=== PATIENT | male | born 1960 | race Caucasian/White ===

== ENCOUNTER 2017-02-21 12:36 | Inpatient (IN) ==
[2017-02-21] MEDS ORDERED: methylPREDNISolone 125 MG/2 ML VIAL IVP ONE (13:07)
[2017-02-21] MEDS ORDERED: Ipratropium/Albuterol Neb 3 ML IH ONE ×2 (13:07→14:18)
--- NOTE | 2017-02-21 13:10 | Emergency Department Note ---
Disposition Clinical Impression: Acute exacerbation of chronic obstructive airways disease, Shortness of breath Disposition: Admitted As Inpatient Condition: Good Referrals: Sean Christine MD [Primary Care Provider] - Forms: ED Satisfaction Letter Time of Disposition: 14:29 SOB HPI - General Chief Complaint: ED Shortness of Breath/Dyspnea Stated Complaint: SOB Time Seen by Provider: 02/21/17 12:42 Source: patient Limitations: no limitations Nursing Notes Reviewed: Yes Vital Signs Reviewed: Yes - History of Present Illness 56-year-old male presents to the emergency room for shortness of breath. Onset a few days ago with increased yellow sputum production. Subjective fevers. No chest pain. No lower leg pain or swelling. History of COPD. Patient has been using nebulizer at home with little relief. Patient still occasionally smokes. He does have home oxygen but does not have a prescription for it. He states his oxygen tank is run out. Pt Subjective Complaint: shortness of breath, cough Onset (ago): day(s) Severity: moderate Consistency/Duration: constant Improves with: nothing Worsens with: lying flat, exertion, movement, coughing Known history of: COPD Associated symptoms: Reports: cough. Denies: chest pain, pain with inspiration Treatment prior to arrival: bronchodilator Cough present: Yes Cough Description: Involuntary Cough Frequency: Intermittent Sputum production: Yes Sputum Amount: Small Sputum Color: Yellow - Related Data Previous Rx's Medication Instructions Recorded Albuterol Sulfate [Proair 2 puff IH Q4H PRN 30 Days 08/10/15 Respiclick] Budesonide/Formoterol 160/4.5 1 puff IH BIDR 30 Days 08/10/15 [Symbicort] Ipratropium/Albuterol Neb [Duoneb] 3 ml IH TID PRN #30 inhsol 08/10/15 Levofloxacin [Levaquin] 500 mg PO DAILY #5 tablet 08/10/15 predniSONE [PredniSONE] 20 mg PO DAILY #12 tablet 08/07/16 Allergies Allergy/AdvReac Type Severity Reaction Status Date / Time Sulfa (Sulfonamide Allergy See Verified 08/08/15 12:09 Antibiotics) Comments Constitutional: Reports: as per HPI Eyes: Reports: as per HPI Cardiovascular: Reports: as per HPI Respiratory: Reports: cough, wheezes Gastrointestinal: Reports: as per HPI Genitourinary: Reports: as per HPI Musculoskeletal: Reports: as per HPI Integumentary: Reports: as per HPI Neurological: Reports: as per HPI Psychiatric: Reports: as per HPI Endocrine: Reports: as per HPI Hematological/Lymphatic: Reports: as per HPI Allergic/Immunologic: Reports: as per HPI Past Medical History - Past Medical History Medical history: Reports: COPD, hypertension, other Surgical history: Reports: other Psychiatric history: Reports: no psych history - Social History Smoking Status: Current every day smoker Smokeless Tobacco Status: No Alcohol use: Reports: none Drug use: Reports: none Physical Exam - General Limitations: no limitations General appearance: alert - Head Head exam: atraumatic, normocephalic - Eye Eye exam: Present: normal appearance - Chest Chest inspection: Present: symmetric chest wall rise. Absent: tenderness - Respiratory Respiratory exam: Present: wheezes, other (Decreased breath sounds bilaterally.) - Cardiovascular Cardiovascular exam: Present: regular rate, normal rhythm, normal heart sounds - Abdominal Exam Abdominal exam: Present: soft, Non-Tender - Extremities Exam Extremities exam: Present: normal inspection, full ROM. Absent: tenderness, pedal edema - Back Exam Back exam: Present: normal inspection - Neurological Exam Neurological exam: Present: alert, oriented X3 - Psychiatric Psychiatric exam: Present: normal affect, normal mood - Skin Skin exam: Present: warm, dry, intact Course Vital Signs Temperature 99.9 F H 02/21/17 12:38 Pulse Rate 98 02/21/17 12:38 Respiratory Rate 22 02/21/17 12:38 Blood Pressure 166/72 02/21/17 12:38 O2 Sat by Pulse Oximetry 98 02/21/17 12:38 Temperature 99.9 F H 02/21/17 12:38 Pulse Rate 80 02/21/17 14:27 Respiratory Rate 22 02/21/17 14:27 Blood Pressure 128/71 02/21/17 14:27 O2 Sat by Pulse Oximetry 95 02/21/17 14:27 Oxygen Delivery Oxygen Delivery Nasal Cannula Shortness of Breath/Dyspnea - [facility] Narrative Medical decision making narrative: Patient's O2 saturations dropped to 86% while walking him around on room air in the ER. Patient does qualify for home oxygen at this time. He does not have any insurance at this point. We will admit the patient for pulmonary treatments as well as to help him get arranged for home oxygen. I have ordered IV Levaquin due to his elevated white count as well as this change and yellow sputum production and subjective fevers. He was also given Solu-Medrol and is pursued a few breathing treatments in the ER. - Differential Diagnosis Likely: acute exacerbation of chronic obstructive airways disease - Medical Records Medical records reviewed: Yes I reviewed the patient's medical records. - Lab Data Lab results reviewed: Yes I reviewed the patient's lab results. Result diagrams: 02/21/17 13:00 02/21/17 13:00 Lab Results 02/21/17 02/21/17 02/21/17 Range/Units 13:00 13:00 13:00 WBC 18.2 H (4.3-11.1) K/mcL RBC 4.34 (4.19-5.50) M/mcL Hgb 13.7 (12.9-16.9) g/dL Hct 40.6 (37.5-50.1) % MCV 93.5 (83.0-100.0) fL MCH 31.6 (28.0-33.3) pg MCHC 33.7 (31.6-35.5) g/dL RDW 12.7 (11.5-14.5) % Plt Count 220 (140-400) K/mcL MPV 8.9 L (9.4-12.4) fL Immature Gran % 0.5 (0-4) % Seg Neutrophils % 80.0 % Lymphocytes % 9.1 % Monocytes % 9.3 % Eosinophils % 0.8 % Basophils % 0.3 % Neutrophils # 14.5 H (1.6-8.9) K/mcL Lymphocytes # 1.7 (0.6-4.6) K/mcL Monocytes # 1.7 H (0.0-1.3) K/mcL Eosinophils # 0.2 (0.0-0.6) K/mcL Basophils # 0.1 (0.0-0.2) K/mcL Sodium 136 (136-145) mEq/L Potassium 4.2 (3.5-4.5) mEq/L Chloride 102 (98-109) mEq/L Carbon Dioxide 24 (19-29) mEq/L BUN 13 (8-26) mg/dL Creatinine 0.84 (0.72-1.25) mg/dL Est GFR ( Amer) > 60 (> 60) Est GFR (Non-Af Amer) > 60 (> 60) BUN/Creatinine Ratio 15 (6-26) Glucose 123 H (70-99) mg/dL Calculated Osmolality 283 (280-300) Calcium 8.8 (8.6-10.8) mg/dL Troponin I 0.01 (0-0.03) ng/mL B-Natriuretic Peptide (0-100) pg/mL 02/21/17 Range/Units 13:00 WBC (4.3-11.1) K/mcL RBC (4.19-5.50) M/mcL Hgb (12.9-16.9) g/dL Hct (37.5-50.1) % MCV (83.0-100.0) fL MCH (28.0-33.3) pg MCHC (31.6-35.5) g/dL RDW (11.5-14.5) % Plt Count (140-400) K/mcL MPV (9.4-12.4) fL Immature Gran % (0-4) % Seg Neutrophils % % Lymphocytes % % Monocytes % % Eosinophils % % Basophils % % Neutrophils # (1.6-8.9) K/mcL Lymphocytes # (0.6-4.6) K/mcL Monocytes # (0.0-1.3) K/mcL Eosinophils # (0.0-0.6) K/mcL Basophils # (0.0-0.2) K/mcL Sodium (136-145) mEq/L Potassium (3.5-4.5) mEq/L Chloride (98-109) mEq/L Carbon Dioxide (19-29) mEq/L BUN (8-26) mg/dL Creatinine (0.72-1.25) mg/dL Est GFR ( Amer) (> 60) Est GFR (Non-Af Amer) (> 60) BUN/Creatinine Ratio (6-26) Glucose (70-99) mg/dL Calculated Osmolality (280-300) Calcium (8.6-10.8) mg/dL Troponin I (0-0.03) ng/mL B-Natriuretic Peptide 44 (0-100) pg/mL - Radiology Data Radiology results reviewed: Yes I reviewed the patient's radiology results. - EKG Data EKG attestation: Yes I reviewed and interpreted this EKG. EKG results narrative: Rate of 85. Normal sinus rhythm. Normal axis. OK interval 129. QRS 94. QTC 400. No signs of acute ischemia.
[2017-02-21 13:15] LABS: Basophils # 0.1 K/mcL (0.0-0.2); Basophils % 0.3 %; Eosinophils # 0.2 K/mcL (0.0-0.6); Eosinophils % 0.8 %; Hematocrit 40.6 % (37.5-50.1); Hemoglobin 13.7 g/dL (12.9-16.9); Immature Granulocytes % 0.5 % (0-4); Lymphocytes # 1.7 K/mcL (0.6-4.6); Lymphocytes % 9.1 %; Mean Corpuscular HGB Conc 33.7 g/dL (31.6-35.5); Mean Corpuscular Hemoglobin 31.6 pg (28.0-33.3); Mean Corpuscular Volume 93.5 fL (83.0-100.0); Mean Platelet Volume 8.9 fL (9.4-12.4); Monocytes # 1.7 K/mcL (0.0-1.3); Monocytes % 9.3 %; Neutrophils # 14.5 K/mcL (1.6-8.9); Platelet Count 220 K/mcL (140-400); Red Blood Count 4.34 M/mcL (4.19-5.50); Red Cell Distribution Width 12.7 % (11.5-14.5)
[2017-02-21] MEDS ORDERED: Ibuprofen 800 MG TABLET PO ONE (13:17)
[2017-02-21 13:28] LABS: BUN/Creatinine Ratio 15 (6-26); Blood Urea Nitrogen 13 mg/dL (8-26); Calcium 8.8 mg/dL (8.6-10.8); Carbon Dioxide 24 mEq/L (19-29); Chloride 102 mEq/L (98-109); Glucose 123 mg/dL (70-99); Osmolality,Calculated 283 (280-300); Potassium 4.2 mEq/L (3.5-4.5); Sodium 136 mEq/L (136-145); eGFR For African Americans > 60 (> 60); eGFR For Non-African Americans > 60 (> 60)
[2017-02-21] MEDS ORDERED: Levofloxacin 750 MG/150 ML 750 MG/150 ML BAG IVPB ONE (14:19)
--- NOTE | 2017-02-21 17:02 | Internal Med History&Physical ---
<Jayson Juarez P - Last Filed: 02/21/17 17:04> Date of Encounter: 02/21/17 Internal Medicine - H&P: HPI History of present illness: Mr. Bui is a 56 year old male Internal Medicine - H&P: Meds Ibuprofen [Advil] 400 - 600 mg PO Q6H PRN 02/21/17 [History] Allergies Sulfa (Sulfonamide Antibiotics) Allergy (Verified 08/08/15 12:09) See Comments Patient unsure of reaction, states this is a childhood allergy. All Systems PM: A 10-system review of systems was performed and is negative for pertinent findings except as documented above in the HPI. - Constitutional Vitals: Temp Pulse Resp BP Pulse Ox 98.3 F 83 18 122/77 95 02/21/17 16:08 02/21/17 16:08 02/21/17 16:08 02/21/17 16:08 02/21/17 16:08 Internal Med - H&P Results - Labs CBC & Chem 7: 02/21/17 13:00 02/21/17 13:00 - Attending Attestation I examined this patient and my medical decision-making was reviewed with the WIRELESS ARCHITECT/PA/Advanced Practice Nurse/Resident Physician. I agree with the documented findings, disposition and treatment plan as described except to the extent set forth below. abx steroids BDAs close monitoring. <Pedro Pham - Last Filed: 02/21/17 17:53> Date of Encounter: 02/21/17 Time of Encounter: 17:00 Assessment and Plan (1) Acute exacerbation of chronic obstructive airways disease Current visit: Yes Status: Acute Patient has had multiple admissions in the past for acute exacerbation of COPD, patient is not home oxygen dependent, active smoker, likely secondary to bronchitis with productive sputum, chest x-ray showed no acute process, will start him on IV steroid, IV antibiotic, DuoNeb [id number], and oxygen support. We will test him for home oxygen 6 minutes walk before he gets discharged. (2) Acute bronchitis Current visit: Yes Status: Acute Will start him on Levaquin. Qualifiers: Qualified Code(s): J20.9 - Acute bronchitis, unspecified (3) Leukocytosis Current visit: Yes Status: Acute Likely related to underlying acute bronchitis, chest x-ray showed no acute process, looking back at his previous white count, it has been elevated since 2015, with his age, concern for CLL, will check peripheral blood smear. Qualifiers: Qualified Code(s): D72.829 - Elevated white blood cell count, unspecified (4) Tobacco abuse Current visit: Yes Status: Acute Smoking cessation education. (5) DVT prophylaxis Current visit: Yes Status: Acute Heparin subcutaneous twice a day. Internal Medicine - H&P: HPI Chief complaint: Worsening shortness of breath and productive cough. Admitted From: Emergency Dept Plans for Post Hospital Care: Home History of present illness: Mr. Bui is a 56 year old male with a history of COPD and tobacco abuse, who presented to the ER with chief complaint of worsening shortness of breath and productive cough, this started a few days ago, and got progressively worse therefore patient presented to the ER. Patient has several previous admission for COPD exacerbation in the past, patient denies recent sick contact, patient did not get a flu shot last year, patient states that he takes rescue inhaler multiple times per week, he does not see a gill tender or primary care physician for the last several years. Patient does not use home oxygen and he is active smoker, 1 pack per day for the last 20 years. Patient admits subjective fever/chills and productive cough with yellowish sputum. Past Med Surg Social Fam HX - Past Medical History Medical history: COPD, hypertension, other Psychiatric history: no psych history - Past Surgical History Surgical History: other - Social History Smoking Status: Light tobacco smoker Packs per day: 1 Smokeless Tobacco Status: No Alcohol use: none Drug use: none - Family History Mother Hx Family Cardiac Disorders: Yes ("heart problems') Father Family Member Ethnicity: Non- Living Status: Hx Family Cardiac Disorders: Yes Hx Family Respiratory Disorders: Yes ("lung problems") All Systems PM: A 10-system review of systems was performed and is negative for pertinent findings except as documented above in the HPI. Review of systems: Patient admits worsening shortness of breath, productive cough, subjective fevers/chills but denies headache, nausea/vomiting, chest pain, abdominal pain, diarrhea/constipation or dysuria. - Constitutional Vitals: Temp Pulse Resp BP Pulse Ox 98.3 F 83 18 122/77 95 02/21/17 16:08 02/21/17 16:08 02/21/17 16:08 02/21/17 16:08 02/21/17 16:08 General appearance: Present: cooperative, A&O X 3, pleasant, no acute distress, answers questions appropriately - Head Head exam: Present: atraumatic, normocephalic - Eye Eye exam: Present: PERRL, conjuntiva pink, sclera anicteric Pupils: Present: PERRL - Neck Neck exam general surgery: Present: supple, trachea midline. Absent: lymphadenopathy - Respiratory Respiratory exam: Present: decreased breath sounds (Diminished diffusedly bilateral), wheezes (Slightly at base bilateral). Absent: accessory muscle use , rales, rhonchi - Cardiovascular Cardiovascular exam: Present: RRR, +S1, +S2. Absent: diastolic murmur, gallop, rubs, systolic murmur - GI/Abdominal GI/Abdominal exam: Present: normal bowel sounds, soft, no peritoneal signs. Absent: distended, tenderness - Extremities Exam Extremities exam: Present: warm, radial pulses palpable and symetrical. Absent : calf tenderness, cyanotic, pedal edema - Neurological Exam Neurological exam: Present: CN II-XII intact, oriented X3, no focal deficits. Absent: pronater drift, facial droop, speech deficit - Skin Skin exam: Present: dry, intact Internal Med - H&P Results - Labs CBC & Chem 7: 02/21/17 13:00 02/21/17 13:00
[2017-02-21] MEDS ORDERED: Naloxone 0.4 MG/ML INJ IVP PRN (17:04)
[2017-02-21] MEDS: Ipratropium/Albuterol Neb 3 ML IH SCH ×2 (19:21→21:39)
[2017-02-21] MEDS: *HR* Heparin 5,000 UNIT/ML VIAL SQ SCH (19:25)
[2017-02-22] MEDS ORDERED: Acetaminophen 325 MG TABLET PO PRN (04:49)
[2017-02-22] MEDS: Ipratropium/Albuterol Neb 3 ML IH SCH ×3 (05:01→16:16)
[2017-02-22] MEDS: *HR* Heparin 5,000 UNIT/ML VIAL SQ SCH (05:10)
[2017-02-22 05:31] LABS: Basophils % 0.1 %; Hematocrit 40.7 % (37.5-50.1); Hemoglobin 13.8 g/dL (12.9-16.9); Immature Granulocytes % 0.9 % (0-4); Lymphocytes # 0.9 K/mcL (0.6-4.6); Lymphocytes % 5.7 %; Mean Corpuscular HGB Conc 33.9 g/dL (31.6-35.5); Mean Corpuscular Hemoglobin 31.9 pg (28.0-33.3); Monocytes % 6.1 %; Neutrophils # 14.3 K/mcL (1.6-8.9); Platelet Count 227 K/mcL (140-400); Red Blood Count 4.33 M/mcL (4.19-5.50); Red Cell Distribution Width 12.5 % (11.5-14.5); Segmented Neutrophils % 87.2 %
[2017-02-22] MEDS: MethylPREDNISolone 40 MG/ML VIAL IVP SCH ×2 (08:22→16:07)
--- NOTE | 2017-02-22 08:50 | Internal Med Progress Note ---
<Pedro Pham - Last Filed: 02/22/17 08:48> Date of Encounter: 02/22/17 Time of Encounter: 08:48 - Assessment and plan (2) Acute exacerbation of chronic obstructive airways disease Status: Acute Assessment and plan: Clinically patient's shortness of breath has improved compare to yesterday, however with slight hemoptysis that he started to cough up this morning, will order CT scan of the chest with contrast this morning. We will continue IV steroid, IV antibiotic, DuoNeb [id number], and oxygen support. We will test him for home oxygen 6 minutes walk before he gets discharged. (4) Leukocytosis Status: Acute Assessment and plan: White count has improved, we will continue IV antibiotic. Peripheral blood smear pending. Qualifiers: Qualified Code(s): D72.829 - Elevated white blood cell count, unspecified (5) Tobacco abuse Status: Acute Assessment and plan: Smoking cessation education. (6) DVT prophylaxis Status: Acute Assessment and plan: Heparin subcutaneous twice a day. (7) Acute bronchitis Status: Acute Assessment and plan: Continue IV Levaquin. Qualifiers: Qualified Code(s): J20.9 - Acute bronchitis, unspecified - Subjective Interval history: Patient seen and examined. Patient states that his shortness of breath has improved compare to yesterday however he started to cough up slight hemoptysis with yellowish sputum production, no active chest pain this morning. - Constitutional Vitals: Temp Pulse Resp BP Pulse Ox 97.6 F 77 16 134/87 96 02/22/17 06:51 02/22/17 06:51 02/22/17 06:51 02/22/17 06:51 02/22/17 06:51 General appearance: Present: cooperative, A&O X 3, pleasant, no acute distress, answers questions appropriately - Head Head exam: Present: atraumatic, normocephalic - Eye Eye exam: Present: PERRL, conjuntiva pink, sclera anicteric Pupils: Present: PERRL - Neck Neck exam general surgery: Present: supple, trachea midline. Absent: lymphadenopathy - Respiratory Respiratory exam: Present: decreased breath sounds (Diminished slightly diffusely bilateral), wheezes (Slightly at base bilateral). Absent: accessory muscle use, rales, rhonchi - Cardiovascular Cardiovascular exam: Present: RRR, +S1, +S2. Absent: diastolic murmur, gallop, rubs, systolic murmur - GI/Abdominal GI/Abdominal exam: Present: normal bowel sounds, soft, no peritoneal signs. Absent: distended, rebound, rigid, tenderness - Extremities Exam Extremities exam: Present: warm, radial pulses palpable and symetrical. Absent : calf tenderness, cyanotic, pedal edema - Neurological Exam Neurological exam: Present: CN II-XII intact, oriented X3, no focal deficits. Absent: pronater drift, facial droop, speech deficit - Skin Skin exam: Present: dry, intact Internal Medicine: Result - Labs CBC & Chem 7: 02/22/17 05:15 02/21/17 13:00 Labs: Short CBC 02/22/17 Range/Units 05:15 WBC 16.4 H (4.3-11.1) K/mcL Hgb 13.8 (12.9-16.9) g/dL Hct 40.7 (37.5-50.1) % Plt Count 227 (140-400) K/mcL Neutrophils # 14.3 H (1.6-8.9) K/mcL Consult Discharge Plan - Plan Referrals: Sean Christine MD [Primary Care Provider] - (Follow-up with patient's primary care physician in a few days for leaving hospital AGAINST MEDICAL ADVICE , if patient does not have PCP, please make an appointment with residency clinic.) Prescriptions: Albuterol Sulfate [Albuterol Inhaler] 2 puff IH Q2HR PRN #1 inhaler PRN Reason: Shortness Of Breath/Wheezing Budesonide/Formoterol 80/4.5 [Symbicort 80/4.5] 1 puff IH BID #1 puff Levofloxacin [Levaquin] 750 mg PO DAILY 7 Days predniSONE [PredniSONE] 10 mg PO DAILY #40 tablet <Jayson Juarez P - Last Filed: 02/22/17 18:49> Date of Encounter: 02/22/17 - Constitutional Vitals: Temp Pulse Resp BP Pulse Ox 98.4 F 86 18 146/78 96 02/22/17 15:21 02/22/17 15:21 02/22/17 15:21 02/22/17 15:21 02/22/17 15:21 Internal Medicine: Result - Labs CBC & Chem 7: 02/22/17 05:15 02/21/17 13:00 Labs: Short CBC 02/22/17 Range/Units 05:15 WBC 16.4 H (4.3-11.1) K/mcL Hgb 13.8 (12.9-16.9) g/dL Hct 40.7 (37.5-50.1) % Plt Count 227 (140-400) K/mcL Neutrophils # 14.3 H (1.6-8.9) K/mcL - Impressions Impressions Chest CT 02/22/17 09:00 IMPRESSION: Multifocal airspace disease, suspicious for pneumonia. There is underlying emphysema. D/ / Jesus Escalona MD / Jesus Escalona MD Interpreting Provider: Jesus Escalona MD - Attending Attestation I examined this patient and my medical decision-making was reviewed with the TRANSFERRER/PA/Advanced Practice Nurse/Resident Physician. I agree with the documented findings, disposition and treatment plan as described except to the extent set forth below.
[2017-02-22] MEDS ORDERED: Levofloxacin 750 MG/150 ML 750 MG/150 ML BAG IVPB SCH (14:00)
--- NOTE | 2017-02-22 14:22 | Discharge Summary ---
<Pedro Pham - Last Filed: 02/22/17 14:19> Date of Encounter: 02/22/17 Time of Encounter: 14:19 - Discharge Diagnosis (1) Left against medical advice Priority: Primary Status: Acute (2) Acute exacerbation of chronic obstructive airways disease Priority: Primary Status: Acute (3) Multifocal pneumonia Priority: Primary Status: Acute (4) Leukocytosis Priority: Primary Status: Acute Qualifiers: Qualified Code(s): D72.829 - Elevated white blood cell count, unspecified (5) Tobacco abuse Priority: Secondary Status: Acute (6) DVT prophylaxis Priority: Secondary Status: Acute - Discharge Medications Prescriptions: Albuterol Sulfate [Albuterol Inhaler] 2 puff IH Q2HR PRN #1 inhaler PRN Reason: Shortness Of Breath/Wheezing Budesonide/Formoterol 80/4.5 [Symbicort 80/4.5] 1 puff IH BID #1 puff Levofloxacin [Levaquin] 750 mg PO DAILY 7 Days predniSONE [PredniSONE] 10 mg PO DAILY #40 tablet Home Medications: Ibuprofen [Advil] 400 - 600 mg PO Q6H PRN 02/21/17 [History] Albuterol Sulfate [Albuterol Inhaler] 2 puff IH Q2HR PRN #1 inhaler 02/22/17 [Rx ] Budesonide/Formoterol 80/4.5 [Symbicort 80/4.5] 1 puff IH BID #1 puff 02/22/17 [Rx] Levofloxacin [Levaquin] 750 mg PO DAILY 7 Days 02/22/17 [Rx] predniSONE [PredniSONE] 10 mg PO DAILY #40 tablet 02/22/17 [Rx] Allergies/Adverse Reactions: Allergies Sulfa (Sulfonamide Antibiotics) Allergy (Verified 08/08/15 12:09) See Comments Patient unsure of reaction, states this is a childhood allergy. Procedures/tests Complete & Pending: Procedures Performed prior 72 hours Category Date Time Status CT chest with contrast [CT chest w con] [CT] Routine Cat Scan 02/22/17 09:00 Completed Date of admission: 02/21/17 16:26 Primary care physician: Yumiko Cardenas Consults: 02/22/17 10:25 Consult to Band Aid Machine Operator [CONS] Routine Reason for SW Consult: Possible need for home oxygen/inhalers Discharging clinician: Pedro Pham Anticipated date of discharge: 02/22/17 - Patient Status Disposition: Left Against Medical Advice Condition: Serious Functional capacity at discharge: independent ambulation Overall status at discharge: patient is not back to baseline - Discharge Instructions Follow Up With: Sean Christine MD [Primary Care Provider] - (Follow-up with patient's primary care physician in a few days for leaving hospital AGAINST MEDICAL ADVICE , if patient does not have PCP, please make an appointment with residency clinic.) - Diet and Activity Activity: resume usual activities as tolerated Diet: low fat, low cholesterol Hospital course: Mr. Bui is a 56 year old male male with a history of COPD and tobacco abuse who presented to ER with chief complaint of worsening shortness of breath and productive cough. Chest x-ray showed no acute process however patient presented with the elevated leukocytosis therefore patient was admitted to the hospital for acute exacerbation of COPD. For possible acute bronchitis patient was started on IV antibiotic of Levaquin, IV steroid, DuoNeb around the clock and oxygen support. CT scan of the chest with contrast showed possible underlying multifocal pneumonia. On the second day of admission, patient states that he needs to go home to take care of his dog, there is nobody to take care the dog today therefore he decided to sign the AGAINST MEDICAL ADVICE form and he was okay with leaving AMA, knowing risk of acute respiratory failure , septic shock/sepsis, cardiac arrest and even . Since patient has has no primary care physician to follow up with, will trying to make appointment with residency clinic and he will be given a prescription of steroid taper, by mouth Levaquin, and inhalers. - Time Spent with Patient Total time spent providing and/or coordinating discharge services: - Constitutional Vitals: Temp Pulse Resp BP Pulse Ox 98 F 81 16 129/84 94 02/22/17 10:11 02/22/17 10:11 02/22/17 11:54 02/22/17 10:11 02/22/17 11:54 General appearance: Present: cooperative, A&O X 3, pleasant, no acute distress, answers questions appropriately <Jayson Juarez P - Last Filed: 02/22/17 18:50> Date of Encounter: 02/22/17 Procedures/tests Complete & Pending: Procedures Performed prior 72 hours Category Date Time Status CT chest with contrast [CT chest w con] [CT] Routine Cat Scan 02/22/17 09:00 Completed Date of admission: 02/21/17 16:26 Primary care physician: Yumiko Cardenas Consults: 02/22/17 10:25 Consult to Band Aid Machine Operator [CONS] Routine Reason for SW Consult: Possible need for home oxygen/inhalers Hospital course: Mr. Bui is a 56 year old male - Time Spent with Patient Total time spent providing and/or coordinating discharge services: - Constitutional Vitals: Temp Pulse Resp BP Pulse Ox 98.4 F 86 18 146/78 96 02/22/17 15:21 02/22/17 15:21 02/22/17 15:21 02/22/17 15:21 02/22/17 15:21 - Attending Attestation I examined this patient and my medical decision-making was reviewed with the ADMINISTRATION VICE PRESIDENT/PA/Advanced Practice Nurse/Resident Physician. I agree with the documented findings, disposition and treatment plan as described except to the extent set forth below.
[2017-02-22 15:21] VITALS: BP 146/78
--- NOTE | 2017-02-24 16:45 | Electrocardiograph Report ---
[place] [address] Test Date: 2017-02-21 Pat Name: Nilesh Bui Department: 102 Room: [facility] Gender: M Tinsel Machine Operator: : 1960 Requested By: Nader Thomas Order Number: [id number] Reading MD: Sadi Benavidez MD Measurements Intervals [place] Rate: 85 P: 79 MS: 129 QRS: 21 QRSD: 94 T: 46 QT: 358 QTc: 400 Interpretive Statements SINUS RHYTHM MINIMAL VOLTAGE CRITERIA FOR LVH, CONSIDER NORMAL VARIANT Electronically Signed On 02-24-2017 16:43:51 EDT by Sadi Benavidez MD
--- NOTE | 2017-02-24 16:47 | Electrocardiograph Report ---
[address] [address] Test Date: 2017-02-21 Pat Name: Nilesh Bui Department: 102 Room: [facility] Gender: M Catcher Filter Tip: : 1960 Requested By: Nader Thomas Order Number: [id number] Reading MD: Sadi Benavidez MD Measurements Intervals [place] Rate: 80 P: 68 [place]: 139 QRS: 17 QRSD: 88 T: 52 QT: 366 QTc: 402 Interpretive Statements SINUS RHYTHM Electronically Signed On 02-24-2017 16:46:02 EDT by Sadi Benavidez MD
== END 2017-02-22 18:10 | disposition left against medical advice (07) | DRG 190 ==
LOC: EMEROO 12:36 → 3NENU 12:36
PROVIDERS: ADMIT Internal Medicine; ATTEND Internal Medicine

== ENCOUNTER 2020-10-28 20:35 | Observation (INO) ==
[2020-10-28] MEDS ORDERED: Aspirin 81 MG TAB.CHEW PO ONE (21:01)
[2020-10-28] MEDS ORDERED: *HR* FentaNYL (PF) 100 MCG/2 ML VIAL IVP ONE (21:03)
[2020-10-28 21:26] LABS: Basophils # 0.1 K/mcL (0.0-0.2); Basophils % 0.4 %; Eosinophils # 1.1 K/mcL (0.0-0.6); Eosinophils % 7.1 %; Hematocrit 44.8 % (37.5-50.1); Hemoglobin 14.7 g/dL (12.9-16.9); Immature Granulocytes % 0.7 % (0-4); Lymphocytes # 2.6 K/mcL (0.6-4.6); Lymphocytes % 16.3 %; Mean Corpuscular HGB Conc 32.8 g/dL (31.6-35.5); Mean Corpuscular Hemoglobin 31.7 pg (28.0-33.3); Mean Corpuscular Volume 96.6 fL (83.0-100.0); Monocytes # 1.5 K/mcL (0.0-1.3); Monocytes % 9.5 %; Neutrophils # 10.3 K/mcL (1.6-8.9); Platelet Count 243 K/mcL (140-400); Red Blood Count 4.64 M/mcL (4.19-5.50); Red Cell Distribution Width 12.2 % (11.5-14.5); White Blood Count 15.7 K/mcL (4.3-11.1)
[2020-10-28 21:54] LABS: Chloride 99 mEq/L (98-107); Potassium 4.1 mEq/L (3.5-5.1); Sodium 137 mEq/L (136-145); Troponin I 0.03 ng/mL (< 0.04)
[2020-10-28 22:19] LABS: BUN/Creatinine Ratio 16 (6-26); Blood Urea Nitrogen 14 mg/dL (8-23); Calcium 10.3 mg/dL (8.6-10.3); Carbon Dioxide 29 mEq/L (23-29); Glucose 111 mg/dL (70-105); Osmolality,Calculated 285 (280-300); eGFR For African Americans > 60 (> 60); eGFR For Non-African Americans > 60 (> 60)
[2020-10-28] MEDS ORDERED: Isovue-370 500 ML BOTTLE IVP ONE (22:46)
[2020-10-29] MEDS ORDERED: Ipratropium/Albuterol Neb 3 ML IH ONE (01:02)
[2020-10-29] MEDS ORDERED: Naloxone 0.4 MG/ML INJ IVP PRN (01:33)
[2020-10-29] MEDS ORDERED: Ipratropium 1 PUFF INHALER IH PRN (02:13)
[2020-10-29] MEDS ORDERED: Ipratropium/Albuterol Neb 3 ML IH PRN (02:14)
[2020-10-29 03:01] LABS: Basophils # 0.1 K/mcL (0.0-0.2); Basophils % 0.4 %; Eosinophils # 0.9 K/mcL (0.0-0.6); Eosinophils % 6.3 %; Hematocrit 44.4 % (37.5-50.1); Hemoglobin 14.9 g/dL (12.9-16.9); Immature Granulocytes % 0.7 % (0-4); Lymphocytes # 2.1 K/mcL (0.6-4.6); Lymphocytes % 15.5 %; Mean Corpuscular HGB Conc 33.6 g/dL (31.6-35.5); Mean Corpuscular Hemoglobin 32.8 pg (28.0-33.3); Mean Corpuscular Volume 97.8 fL (83.0-100.0); Monocytes # 1.3 K/mcL (0.0-1.3); Monocytes % 9.2 %; Neutrophils # 9.2 K/mcL (1.6-8.9); Platelet Count 235 K/mcL (140-400); Red Blood Count 4.54 M/mcL (4.19-5.50); Red Cell Distribution Width 12.1 % (11.5-14.5); Segmented Neutrophils % 67.9 %; White Blood Count 13.5 K/mcL (4.3-11.1)
[2020-10-29] MEDS: Azithromycin 500 MG in 0.9 % Sodium Chloride 250 ML IVPB SCH (03:04)
[2020-10-29] MEDS: cefTRIAXone 2,000 MG in Water for inj. (sterile) 20 ML IVP SCH (03:05)
[2020-10-29 03:18] LABS: BUN/Creatinine Ratio 16 (6-26); Blood Urea Nitrogen 14 mg/dL (8-23); Calcium 9.6 mg/dL (8.6-10.3); Carbon Dioxide 30 mEq/L (23-29); Chloride 98 mEq/L (98-107); Glucose 103 mg/dL (70-105); Osmolality,Calculated 283 (280-300); Potassium 4.1 mEq/L (3.5-5.1); Sodium 136 mEq/L (136-145); eGFR For African Americans > 60 (> 60); eGFR For Non-African Americans > 60 (> 60)
[2020-10-29 03:30] LABS: Adenovirus Not Detected (Not Detect); Bordetella Pertussis Not Detected (Not Detect); Chlamydophila pneumoniae Not Detected (Not Detect); Coronavirus 229E Not Detected (Not Detect); Coronavirus HKU1 Not Detected (Not Detect); Coronavirus NL63 Not Detected (Not Detect); Coronavirus OC43 Not Detected (Not Detect); Human Metapneumovirus Not Detected (Not Detect); Human Rhinovirus/Enterovirus Not Detected (Not Detect); Influenza A Subtype 2009 H1 Not Detected (Not Detect); Influenza B Not Detected (Not Detect); Mycoplasma pneumoniae Not Detected (Not Detect); Parainfluenza Virus 1 Not Detected (Not Detect); Parainfluenza Virus 2 Not Detected (Not Detect); Parainfluenza Virus 3 Not Detected (Not Detect); Parainfluenza Virus 4 Not Detected (Not Detect); Respiratory Syncytial Virus Not Detected (Not Detect); SARS-CoV-2 Not Detected (Not Detect)
[2020-10-29] MEDS: Sucralfate 1 GM TABLET PO SCH ×4 (04:32→20:14)
[2020-10-29] MEDS: Furosemide 20 MG TABLET PO SCH (07:54)
[2020-10-29] MEDS: Pantoprazole 40 MG VIAL IVP SCH (07:55)
[2020-10-29] MEDS: Ipratropium/Albuterol Neb 3 ML IH SCH ×3 (11:23→21:45)
[2020-10-29] MEDS: predniSONE 20 MG TABLET PO SCH (12:44)
[2020-10-29] MEDS ORDERED: Ondansetron 4 MG/2 ML VIAL IVP ONE (13:10)
[2020-10-29] MEDS ORDERED: *HR* Heparin 5,000 UNIT/ML VIAL SQ SCH (18:00)
[2020-10-30] MEDS: cefTRIAXone 2,000 MG in Water for inj. (sterile) 20 ML IVP SCH (03:37)
[2020-10-30] MEDS: Azithromycin 500 MG in 0.9 % Sodium Chloride 250 ML IVPB SCH (03:37)
[2020-10-30] MEDS: Ipratropium/Albuterol Neb 3 ML IH SCH ×4 (03:42→21:52)
[2020-10-30 05:45] LABS: Basophils # 0.1 K/mcL (0.0-0.2); Basophils % 0.4 %; Eosinophils # 0.2 K/mcL (0.0-0.6); Eosinophils % 1.3 %; Hematocrit 41.4 % (37.5-50.1); Hemoglobin 13.9 g/dL (12.9-16.9); Immature Granulocytes % 0.7 % (0-4); Lymphocytes # 2.2 K/mcL (0.6-4.6); Lymphocytes % 16.4 %; Mean Corpuscular HGB Conc 33.6 g/dL (31.6-35.5); Mean Corpuscular Hemoglobin 32.3 pg (28.0-33.3); Mean Corpuscular Volume 96.3 fL (83.0-100.0); Monocytes # 1.3 K/mcL (0.0-1.3); Monocytes % 9.9 %; Neutrophils # 9.6 K/mcL (1.6-8.9); Platelet Count 228 K/mcL (140-400); Segmented Neutrophils % 71.3 %; White Blood Count 13.5 K/mcL (4.3-11.1)
[2020-10-30 06:04] LABS: BUN/Creatinine Ratio 24 (6-26); Blood Urea Nitrogen 18 mg/dL (8-23); Calcium 8.8 mg/dL (8.6-10.3); Carbon Dioxide 31 mEq/L (23-29); Chloride 100 mEq/L (98-107); Glucose 114 mg/dL (70-105); Osmolality,Calculated 285 (280-300); Potassium 4.3 mEq/L (3.5-5.1); Sodium 136 mEq/L (136-145); eGFR For African Americans > 60 (> 60); eGFR For Non-African Americans > 60 (> 60)
[2020-10-30] MEDS: Pantoprazole 40 MG VIAL IVP SCH (07:52)
[2020-10-30] MEDS: lisinopriL 20 MG TABLET PO SCH (07:52)
[2020-10-30] MEDS: Sucralfate 1 GM TABLET PO SCH ×4 (07:52→20:15)
[2020-10-30] MEDS: predniSONE 20 MG TABLET PO SCH (07:52)
[2020-10-30] MEDS: Furosemide 20 MG TABLET PO SCH (07:52)
[2020-10-31] MEDS: cefTRIAXone 2,000 MG in Water for inj. (sterile) 20 ML IVP SCH (02:15)
[2020-10-31] MEDS: Azithromycin 500 MG in 0.9 % Sodium Chloride 250 ML IVPB SCH (02:15)
[2020-10-31] MEDS: Ipratropium/Albuterol Neb 3 ML IH SCH ×2 (04:06→09:39)
[2020-10-31 06:29] LABS: Basophils # 0.1 K/mcL (0.0-0.2); Basophils % 0.6 %; Eosinophils # 0.4 K/mcL (0.0-0.6); Eosinophils % 2.4 %; Hematocrit 39.9 % (37.5-50.1); Hemoglobin 13.4 g/dL (12.9-16.9); Immature Granulocytes % 0.8 % (0-4); Lymphocytes # 3.2 K/mcL (0.6-4.6); Lymphocytes % 22.3 %; Mean Corpuscular HGB Conc 33.6 g/dL (31.6-35.5); Mean Corpuscular Hemoglobin 31.6 pg (28.0-33.3); Mean Corpuscular Volume 94.1 fL (83.0-100.0); Monocytes # 1.2 K/mcL (0.0-1.3); Monocytes % 8.3 %; Neutrophils # 9.4 K/mcL (1.6-8.9); Platelet Count 236 K/mcL (140-400); Red Blood Count 4.24 M/mcL (4.19-5.50); Red Cell Distribution Width 12.2 % (11.5-14.5); Segmented Neutrophils % 65.6 %; White Blood Count 14.4 K/mcL (4.3-11.1)
[2020-10-31 06:37] VITALS: BP 133/80
[2020-10-31 06:50] LABS: BUN/Creatinine Ratio 26 (6-26); Blood Urea Nitrogen 20 mg/dL (8-23); Calcium 8.6 mg/dL (8.6-10.3); Carbon Dioxide 28 mEq/L (23-29); Chloride 102 mEq/L (98-107); Glucose 105 mg/dL (70-105); Osmolality,Calculated 287 (280-300); Potassium 3.8 mEq/L (3.5-5.1); Sodium 137 mEq/L (136-145); eGFR For African Americans > 60 (> 60); eGFR For Non-African Americans > 60 (> 60)
[2020-10-31] MEDS: predniSONE 20 MG TABLET PO SCH (07:42)
[2020-10-31] MEDS: Pantoprazole 40 MG VIAL IVP SCH (07:42)
[2020-10-31] MEDS: Furosemide 20 MG TABLET PO SCH (07:42)
[2020-10-31] MEDS: lisinopriL 20 MG TABLET PO SCH (07:42)
[2020-10-31] MEDS: Sucralfate 1 GM TABLET PO SCH (07:42)
== END 2020-10-31 11:46 | disposition home or self-care (01) ==
LOC: 3BNU 20:35 → EMEROOARM 20:35 → 3BNU 10-29 02:16
PROVIDERS: ADMIT Internal Medicine; ATTEND Internal Medicine

== ENCOUNTER 2022-02-06 02:26 | Inpatient (IN) ==
[2022-02-06] MEDS: Ipratropium/Albuterol Neb 3 ML IH ONE ×2 (02:30→03:00)
[2022-02-06] MEDS ORDERED: Ipratropium/Albuterol Neb 3 ML ONE (02:33)
[2022-02-06 02:46] LABS: Basophils # 0.2 K/mcL (0.0-0.2); Basophils % 0.7 %; Eosinophils # 0.9 K/mcL (0.0-0.6); Eosinophils % 4.3 %; Hematocrit 49.1 % (37.5-50.1); Hemoglobin 15.6 g/dL (12.9-16.9); Immature Granulocytes % 1.2 % (0-4); Lymphocytes # 7.4 K/mcL (0.6-4.6); Lymphocytes % 36.3 %; Mean Corpuscular HGB Conc 31.8 g/dL (31.6-35.5); Mean Corpuscular Hemoglobin 32.8 pg (28.0-33.3); Mean Corpuscular Volume 103.4 fL (83.0-100.0); Mean Platelet Volume 9.5 fL (9.4-12.4); Monocytes # 2.1 K/mcL (0.0-1.3); Monocytes % 10.2 %; Neutrophils # 9.7 K/mcL (1.6-8.9); Platelet Count 280 K/mcL (140-400); Red Blood Count 4.75 M/mcL (4.19-5.50); Red Cell Distribution Width 12.3 % (11.5-14.5); Segmented Neutrophils % 47.3 %; White Blood Count 20.5 K/mcL (4.3-11.1)
[2022-02-06 02:48] LABS: VBG HCO3 24 mEq/L (21-27); VBG PCO2 113 mmHg (41-51); VBG PH 6.94 pH Units (7.32-7.42); VBG PO2 80 mmHg (25-50)
[2022-02-06 02:53] LABS: INR 1.1; Prothrombin Time 12.8 Seconds (9.4-12.1)
[2022-02-06 02:56] LABS: Activated Partial Thrombo Time 30.7 Seconds (26.0-36.0)
[2022-02-06 03:05] LABS: Albumin 4.2 g/dL (3.5-5.7); Albumin/Globulin Ratio 1.8 (1.1-2.2); Bilirubin,Direct 0.2 mg/dL (0.0-0.2); Bilirubin,Indirect 0.5 mg/dL (0.0-1.0); Bilirubin,Total 0.7 mg/dL (0.3-1.0); Calcium 9.2 mg/dL (8.6-10.3); Globulin 2.3 g/dL (2.4-3.5); Potassium 4.2 mEq/L (3.5-5.1); Total Protein 6.5 g/dL (6.4-8.9); Troponin I 0.03 ng/mL (< 0.04)
[2022-02-06] MEDS ORDERED: Albuterol 2.5 MG/3 ML NEBULIZER IH ONE (03:31)
[2022-02-06 04:00] LABS: VBG HCO3 31 mEq/L (21-27); VBG PCO2 83 mmHg (41-51); VBG PH 7.18 pH Units (7.32-7.42); VBG PO2 34 mmHg (25-50)
[2022-02-06] MEDS ORDERED: Azithromycin 500 MG in 0.9 % Sodium Chloride 250 ML IVPB ONE (04:15)
[2022-02-06] MEDS ORDERED: D5% in Water 1,000 ML IVC PRN (04:30)
[2022-02-06] MEDS ORDERED: Dextrose Gel 15 GM/37.5 ML TUBE PO PRN ×2 (04:30)
[2022-02-06] MEDS ORDERED: *HR* Dextrose 50 % in Water (Syg) 50 ML SYRINGE IVP PRN (04:30)
[2022-02-06] MEDS ORDERED: Ondansetron 4 MG/2 ML VIAL IVP PRN (04:31)
[2022-02-06] MEDS ORDERED: methylPREDNISolone 125 MG/2 ML VIAL IVP ONE (04:31)
[2022-02-06] MEDS ORDERED: Naloxone 0.4 MG/ML INJ IVP PRN (04:31)
[2022-02-06] MEDS ORDERED: 0.9 % Sodium Chloride 500 ML IVC PRN (04:37)
[2022-02-06] MEDS: Insulin LISPRO 300 UNITS/3 ML VIAL SUBQ SCH ×5 (06:35→17:30)
[2022-02-06 06:36] LABS: Adenovirus Not Detected (Not Detect); Bordetella Pertussis Not Detected (Not Detect); Chlamydophila pneumoniae Not Detected (Not Detect); Coronavirus 229E Not Detected (Not Detect); Coronavirus HKU1 Not Detected (Not Detect); Coronavirus NL63 Not Detected (Not Detect); Coronavirus OC43 Not Detected (Not Detect); Human Metapneumovirus Not Detected (Not Detect); Human Rhinovirus/Enterovirus Not Detected (Not Detect); Influenza A Subtype 2009 H1 Not Detected (Not Detect); Influenza B Not Detected (Not Detect); Mycoplasma pneumoniae Not Detected (Not Detect); Parainfluenza Virus 1 Not Detected (Not Detect); Parainfluenza Virus 2 Not Detected (Not Detect); Parainfluenza Virus 3 Not Detected (Not Detect); Parainfluenza Virus 4 Not Detected (Not Detect); Respiratory Syncytial Virus Not Detected (Not Detect); SARS-CoV-2 Not Detected (Not Detect)
[2022-02-06] MEDS: cefTRIAXone 1,000 MG in 0.9 % Sodium Chloride 10 ML IVP SCH (08:15)
[2022-02-06] MEDS: Pantoprazole 40 MG VIAL IVP SCH (08:15)
[2022-02-06 10:02] LABS: ABG Base Excess 0 mEq/L (-2 to 3); ABG HCO3 26 mEq/L (21-27); ABG Oxygen Saturation 94 % (95-98); ABG PCO2 44 mmHg (35-45); ABG PH 7.38 pH Units (7.32-7.45); ABG PO2 71 mmHg (85-104); ABG TCO2 27 mEq/L (20-26)
[2022-02-06] MEDS: methylPREDNISolone 125 MG/2 ML VIAL IVP SCH ×3 (11:19→23:20)
[2022-02-06] MEDS: Ipratropium/Albuterol Neb 3 ML IH PRN ×2 (15:50→20:24)
[2022-02-06] MEDS: Acetaminophen 325 MG TABLET PO PRN (15:50)
[2022-02-06] MEDS ORDERED: *HR* Heparin 5,000 UNIT/ML VIAL IVP ONE (18:24)
[2022-02-06] MEDS ORDERED: *HR* Heparin 5,000 UNIT/ML VIAL IVP PRN ×2 (18:24)
[2022-02-06] MEDS: Heparin 25,000UNIT/250ML 1/2NS 25,000 UNIT/250 ML IV.SOLN IVC SCH (19:49)
[2022-02-07] MEDS: Ipratropium/Albuterol Neb 3 ML IH SCH ×7 (00:07→23:02)
[2022-02-07] MEDS: methylPREDNISolone 125 MG/2 ML VIAL IVP SCH (04:03)
[2022-02-07 04:12] LABS: BUN/Creatinine Ratio 25 (6-26); Blood Urea Nitrogen 20 mg/dL (8-23); Carbon Dioxide 26 mEq/L (23-29); Chloride 105 mEq/L (98-107); Glucose 144 mg/dL (70-105); Osmolality,Calculated 287 (280-300); Potassium 4.3 mEq/L (3.5-5.1); Sodium 136 mEq/L (136-145); eGFR For African Americans > 60 (> 60); eGFR For Non-African Americans > 60 (> 60)
[2022-02-07 04:20] LABS: Heparin anti-factor XA UFH 0.21 IU/mL (0.30-0.70); INR 1.1; Prothrombin Time 12.3 Seconds (9.4-12.1)
[2022-02-07] MEDS ORDERED: Saline Nasal Spray 44 ML BOTTLE NS PRN (04:32)
[2022-02-07] MEDS: Azithromycin 500 MG in 0.9 % Sodium Chloride 250 ML IVPB SCH (05:12)
[2022-02-07] MEDS ORDERED: methylPREDNISolone 125 MG/2 ML VIAL IVP SCH (06:00)
[2022-02-07 06:41] LABS: Basophils % 0.1 %; Hematocrit 44.1 % (37.5-50.1); Hemoglobin 14.7 g/dL (12.9-16.9); Immature Granulocytes % 0.5 % (0-4); Lymphocytes # 0.8 K/mcL (0.6-4.6); Lymphocytes % 5.2 %; Mean Corpuscular HGB Conc 33.3 g/dL (31.6-35.5); Mean Corpuscular Hemoglobin 32.2 pg (28.0-33.3); Mean Corpuscular Volume 96.5 fL (83.0-100.0); Mean Platelet Volume 9.5 fL (9.4-12.4); Monocytes # 0.7 K/mcL (0.0-1.3); Monocytes % 4.2 %; Neutrophils # 14.4 K/mcL (1.6-8.9); Platelet Count 221 K/mcL (140-400); Red Blood Count 4.57 M/mcL (4.19-5.50); Red Cell Distribution Width 12.2 % (11.5-14.5)
[2022-02-07] MEDS: cefTRIAXone 1,000 MG in 0.9 % Sodium Chloride 10 ML IVP SCH (07:51)
[2022-02-07] MEDS: Pantoprazole 40 MG VIAL IVP SCH (07:52)
[2022-02-07] MEDS: Insulin LISPRO 300 UNITS/3 ML VIAL SUBQ SCH ×3 (08:05→17:00)
[2022-02-07] MEDS ORDERED: Perflutren Lipid Microsphere 1.3 ML in 0.9 % Sodium Chloride 8.7 ML IVP PRN (08:30)
[2022-02-07] MEDS: Acetaminophen 325 MG TABLET PO PRN ×2 (09:51→20:21)
[2022-02-07] MEDS: MethylPREDNISolone 40 MG/ML VIAL IVP SCH ×2 (17:02→23:43)
[2022-02-07] MEDS: Heparin 25,000UNIT/250ML 1/2NS 25,000 UNIT/250 ML IV.SOLN IVC SCH (19:30)
[2022-02-07] MEDS ORDERED: Nicotine 21 MG PATCH.TD24 TD SCH (20:30)
[2022-02-07] MEDS: *HR* Metoprolol 5 MG/5 ML VIAL IVP PRN (20:32)
[2022-02-08] MEDS: Ipratropium/Albuterol Neb 3 ML IH SCH ×6 (03:42→23:23)
[2022-02-08 05:49] LABS: Basophils % 0.1 %; Hematocrit 43.2 % (37.5-50.1); Hemoglobin 14.5 g/dL (12.9-16.9); Immature Granulocytes % 0.7 % (0-4); Lymphocytes # 0.8 K/mcL (0.6-4.6); Mean Corpuscular HGB Conc 33.6 g/dL (31.6-35.5); Mean Corpuscular Hemoglobin 32.2 pg (28.0-33.3); Mean Corpuscular Volume 95.8 fL (83.0-100.0); Mean Platelet Volume 9.5 fL (9.4-12.4); Monocytes # 0.9 K/mcL (0.0-1.3); Monocytes % 4.5 %; Neutrophils # 17.7 K/mcL (1.6-8.9); Platelet Count 237 K/mcL (140-400); Red Blood Count 4.51 M/mcL (4.19-5.50); Red Cell Distribution Width 12.3 % (11.5-14.5); Segmented Neutrophils % 90.7 %; White Blood Count 19.5 K/mcL (4.3-11.1)
[2022-02-08 06:05] LABS: Chol/HDL Ratio 3.7 (0-4.9); Phosphorous 3.1 mg/dL (2.7-4.5)
[2022-02-08] MEDS: Azithromycin 500 MG in 0.9 % Sodium Chloride 250 ML IVPB SCH (06:28)
[2022-02-08] MEDS: Insulin LISPRO 300 UNITS/3 ML VIAL SUBQ SCH ×3 (07:41→17:43)
[2022-02-08] MEDS: Pantoprazole 40 MG VIAL IVP SCH (07:49)
[2022-02-08] MEDS: cefTRIAXone 1,000 MG in 0.9 % Sodium Chloride 10 ML IVP SCH (07:51)
[2022-02-08] MEDS: MethylPREDNISolone 40 MG/ML VIAL IVP SCH ×2 (07:51→15:03)
[2022-02-08] MEDS: *HR* Metoprolol 5 MG/5 ML VIAL IVP PRN (11:13)
[2022-02-08] MEDS ORDERED: GuaiFENesin/Dextromethorphan TABLET PO PRN (14:50)
[2022-02-08] MEDS: amLODIPine 5 MG TABLET PO SCH (15:03)
[2022-02-08 17:17] LABS: Estimated Average Glucose 120 mg/dl; Hemoglobin A1C 5.8 %
[2022-02-08] MEDS ORDERED: Nicotine 21 MG PATCH.TD24 TD SCH (21:00)
[2022-02-09] MEDS: MethylPREDNISolone 40 MG/ML VIAL IVP SCH ×2 (01:13→08:49)
[2022-02-09 03:25] LABS: Basophils % 0.1 %; Hematocrit 43.2 % (37.5-50.1); Hemoglobin 14.5 g/dL (12.9-16.9); Lymphocytes # 1.2 K/mcL (0.6-4.6); Lymphocytes % 6.4 %; Mean Corpuscular HGB Conc 33.6 g/dL (31.6-35.5); Mean Corpuscular Hemoglobin 32.4 pg (28.0-33.3); Mean Corpuscular Volume 96.4 fL (83.0-100.0); Mean Platelet Volume 9.5 fL (9.4-12.4); Monocytes # 1.1 K/mcL (0.0-1.3); Monocytes % 6.2 %; Neutrophils # 15.7 K/mcL (1.6-8.9); Platelet Count 217 K/mcL (140-400); Red Blood Count 4.48 M/mcL (4.19-5.50); Red Cell Distribution Width 12.2 % (11.5-14.5); Segmented Neutrophils % 86.3 %; White Blood Count 18.2 K/mcL (4.3-11.1)
[2022-02-09 03:31] VITALS: BP 159/88
[2022-02-09 03:56] LABS: BUN/Creatinine Ratio 27 (6-26); Blood Urea Nitrogen 20 mg/dL (8-23); Calcium 8.8 mg/dL (8.6-10.3); Carbon Dioxide 26 mEq/L (23-29); Chloride 102 mEq/L (98-107); Glucose 124 mg/dL (70-105); Magnesium 2.1 mg/dL (1.6-2.6); Osmolality,Calculated 284 (280-300); Potassium 4.2 mEq/L (3.5-5.1); Sodium 135 mEq/L (136-145); eGFR For African Americans > 60 (> 60); eGFR For Non-African Americans > 60 (> 60)
[2022-02-09] MEDS: Ipratropium/Albuterol Neb 3 ML IH SCH ×3 (04:10→11:27)
[2022-02-09] MEDS: Azithromycin 500 MG in 0.9 % Sodium Chloride 250 ML IVPB SCH (06:06)
[2022-02-09 06:41] VITALS: TEMP 98
[2022-02-09] MEDS: Insulin LISPRO 300 UNITS/3 ML VIAL SUBQ SCH (07:59)
[2022-02-09] MEDS: Pantoprazole 40 MG VIAL IVP SCH (08:49)
[2022-02-09] MEDS: cefTRIAXone 1,000 MG in 0.9 % Sodium Chloride 10 ML IVP SCH (08:49)
[2022-02-09] MEDS: amLODIPine 5 MG TABLET PO SCH (08:50)
[2022-02-09 12:06] VITALS: PULSE 97; O2SAT 96
== END 2022-02-09 15:11 | disposition home or self-care (01) | DRG 871 ==
LOC: EMEROOARM 02:26 → ICNU 02:26 → SUATTDRO 04:41 → ICNU 05:31 → 2NENU 02-07 22:34
PROVIDERS: ADMIT Internal Medicine; ATTEND Family Medicine

== ENCOUNTER 2022-03-07 20:12 | Inpatient (IN) ==
[2022-03-07] MEDS ORDERED: 0.9 % Sodium Chloride 1,000 ML IVC ONE (20:25)
[2022-03-07 20:32] LABS: ABG Base Excess -8 mEq/L (-2 to 3); ABG HCO3 23 mEq/L (21-27); ABG Oxygen Saturation 96 % (95-98); ABG PCO2 80 mmHg (35-45); ABG PH 7.07 pH Units (7.32-7.45); ABG PO2 115 mmHg (85-104); ABG TCO2 26 mEq/L (20-26)
[2022-03-07 20:53] LABS: INR 1.1; Prothrombin Time 11.9 Seconds (9.4-12.1)
[2022-03-07 21:06] LABS: Alanine Aminotransferase 74 Units/L (7-52); Albumin 3.6 g/dL (3.5-5.7); Albumin/Globulin Ratio 1.7 (1.1-2.2); Alkaline Phosphatase 65 Units/L (34-104); Aspartate Amino Transferase 60 Units/L (13-39); BUN/Creatinine Ratio 18 (6-26); Bilirubin,Total 0.4 mg/dL (0.3-1.0); Blood Urea Nitrogen 21 mg/dL (8-23); Calcium 8.6 mg/dL (8.6-10.3); Carbon Dioxide 24 mEq/L (23-29); Chloride 101 mEq/L (98-107); Creatine Kinase 117 Units/L (30-223); Globulin 2.1 g/dL (2.4-3.5); Glucose 183 mg/dL (70-105); Magnesium 2.1 mg/dL (1.6-2.6); Osmolality,Calculated 300 (280-300); Potassium 4.6 mEq/L (3.5-5.1); Sodium 141 mEq/L (136-145); Total Protein 5.7 g/dL (6.4-8.9); Troponin I 0.03 ng/mL (< 0.04); eGFR For African Americans > 60 (> 60); eGFR For Non-African Americans > 60 (> 60)
[2022-03-07 21:20] LABS: Hematocrit 40.7 % (37.5-50.1); Hemoglobin 13.6 g/dL (12.9-16.9); Mean Corpuscular HGB Conc 33.4 g/dL (31.6-35.5); Mean Corpuscular Hemoglobin 33.1 pg (28.0-33.3); Mean Platelet Volume 8.9 fL (9.4-12.4); Platelet Count 330 K/mcL (140-400); Red Blood Count 4.11 M/mcL (4.19-5.50); Red Cell Distribution Width 12.8 % (11.5-14.5)
[2022-03-07] MEDS ORDERED: *HR* EPINEPHrine 1 MG/10 ML SYRINGE IVP ONE (21:30)
[2022-03-07 21:32] LABS: Amphetamine Screen,Urine Negative ng/mL (Cutoff=1000); Barbiturate Screen,Urine Negative ng/mL (Cutoff=200); Benzodiazepines Screen,Urine Negative ng/mL (Cutoff=200); Cannabinoid Screen,Urine Positive ng/mL (Cutoff = 50); Cocaine Screen,Urine Negative ng/mL (Cutoff= 300); Opiate Screen,Urine Negative ng/mL (Cutoff=300); Phencyclidine Screen,Urine Negative ng/mL (Cutoff=25)
[2022-03-07 21:36] LABS: Lymphocytes # 3.4 K/mcL (0.6-4.6); Monocytes # 1.1 K/mcL (0.0-1.3); Neutrophils # 14.4 K/mcL (1.6-8.9)
[2022-03-07 21:49] LABS: Bacteria,Urine Few per hpf (None-Few); Bilirubin,Urine Negative (Negative); Blood,Urine Large (Negative); Clarity,Urine Turbid (Clear); Color,Urine Yellow (Yellow); Glucose,Urine (UA) 150 mg/dL (Normal); Hyaline Casts,Urine Few per lpf (None Seen); Ketones,Urine Negative (Negative); Leukocyte Esterase,Urine Negative (Negative); Mucus,Urine Few per lpf (None-Few); Nitrite,Urine Negative (Negative); PH,Urine 6.5 pH Units (5.0-8.0); Protein,Urine >=300 mg/dL (Neg-Trace); RBC,Urine TNTC per hpf (0-3); Specific Gravity,Urine 1.024 (1.010-1.025); Sperm,Urine Present per hpf (None Seen); Squamous Epithelial Cell,Urine Few per hpf (None-Few); Urobilinogen,Urine Normal (Normal); WBC,Urine 15-30 per hpf (0-3)
[2022-03-07] MEDS ORDERED: Ondansetron 4 MG/2 ML VIAL IVP PRN (22:00)
[2022-03-07] MEDS ORDERED: Naloxone 0.4 MG/ML INJ IVP PRN ×3 (22:00→22:46)
[2022-03-07] MEDS ORDERED: Artificial Tears SOLN 15 ML BOTTLE BOTH EYES PRN (22:50)
[2022-03-07] MEDS ORDERED: Ipratropium/Albuterol Neb 3 ML ONE (23:05)
[2022-03-07] MEDS ORDERED: *HR* Heparin 5,000 UNIT/ML VIAL SQ SCH (23:15)
[2022-03-07] MEDS ORDERED: Azithromycin 500 MG in 0.9 % Sodium Chloride 250 ML IVPB SCH (23:45)
[2022-03-07] MEDS: Artificial Tears SOLN 15 ML BOTTLE BOTH EYES SCH (23:48)
[2022-03-07] MEDS: Pantoprazole 40 MG VIAL IVP SCH (23:49)
[2022-03-08] MEDS: Midazolam HCl 50 MG/50 ML IV.SOLN IVC SCH ×2 (00:10→11:10)
[2022-03-08 00:30] LABS: ABG Base Excess 1 mEq/L (-2 to 3); ABG HCO3 27 mEq/L (21-27); ABG Oxygen Saturation 99 % (95-98); ABG PCO2 46 mmHg (35-45); ABG PH 7.37 pH Units (7.32-7.45); ABG PO2 157 mmHg (85-104); ABG TCO2 28 mEq/L (20-26); Blood Gas Modality ASSIST CONTROL; Blood Gas VT 500 cc
[2022-03-08 02:54] LABS: Basophils % 0.1 %; Hematocrit 38.8 % (37.5-50.1); Immature Granulocytes % 1.1 % (0-4); Lymphocytes # 1.3 K/mcL (0.6-4.6); Lymphocytes % 5.8 %; Mean Corpuscular HGB Conc 33.5 g/dL (31.6-35.5); Mean Corpuscular Hemoglobin 32.7 pg (28.0-33.3); Mean Corpuscular Volume 97.5 fL (83.0-100.0); Monocytes # 2.7 K/mcL (0.0-1.3); Monocytes % 12.7 %; Neutrophils # 17.3 K/mcL (1.6-8.9); Platelet Count 251 K/mcL (140-400); Red Blood Count 3.98 M/mcL (4.19-5.50); Red Cell Distribution Width 12.9 % (11.5-14.5); Segmented Neutrophils % 80.3 %; White Blood Count 21.6 K/mcL (4.3-11.1)
[2022-03-08 03:04] LABS: INR 1.2; Prothrombin Time 13.1 Seconds (9.4-12.1)
[2022-03-08 03:25] LABS: BUN/Creatinine Ratio 27 (6-26); Blood Urea Nitrogen 28 mg/dL (8-23); Calcium 8.1 mg/dL (8.6-10.3); Carbon Dioxide 25 mEq/L (23-29); Chloride 108 mEq/L (98-107); Chol/HDL Ratio 3.8 (0-4.9); Cholesterol 145 mg/dL (< 200); Glucose 182 mg/dL (70-105); HDL Cholesterol 38 mg/dL (40-59); LDL Cholesterol,Calculated 87 mg/dL (< 100); Magnesium 1.8 mg/dL (1.6-2.6); Osmolality,Calculated 302 (280-300); Phosphorous 1.6 mg/dL (2.7-4.5); Potassium 3.4 mEq/L (3.5-5.1); Sodium 141 mEq/L (136-145); Thyroid Stimulating Hormone 0.437 mcIU/mL (0.340-5.600); Triglycerides 98 mg/dL (< 150); eGFR For African Americans > 60 (> 60); eGFR For Non-African Americans > 60 (> 60)
[2022-03-08] MEDS ORDERED: Potassium Phosphate 44 MEQ in 0.9 % Sodium Chloride 250 ML IVPB ONE (04:25)
[2022-03-08] MEDS ORDERED: *HR* Heparin 5,000 UNIT/ML VIAL IVP PRN ×2 (04:44)
[2022-03-08] MEDS ORDERED: *HR* Heparin 5,000 UNIT/ML VIAL IVP ONE (04:44)
[2022-03-08] MEDS ORDERED: Heparin 25,000UNIT/250ML 1/2NS 25,000 UNIT/250 ML IV.SOLN IVC SCH (04:45)
[2022-03-08] MEDS: Artificial Tears SOLN 15 ML BOTTLE BOTH EYES SCH ×3 (04:46→13:39)
[2022-03-08] MEDS ORDERED: Iopamidol - 370 500 ML MLS IVP ONE (04:49)
[2022-03-08] MEDS ORDERED: 0.9 % Sodium Chloride 500 ML IVC PRN (04:55)
[2022-03-08 04:59] LABS: ABG Base Excess 1 mEq/L (-2 to 3); ABG HCO3 26 mEq/L (21-27); ABG Oxygen Saturation 97 % (95-98); ABG PCO2 40 mmHg (35-45); ABG PH 7.41 pH Units (7.32-7.45); ABG PO2 88 mmHg (85-104); ABG TCO2 27 mEq/L (20-26); Blood Gas Modality ASSIST CONTROL; Blood Gas VT 500 cc
[2022-03-08] MEDS: Pantoprazole 40 MG VIAL IVP SCH (05:13)
[2022-03-08] MEDS ORDERED: Piperacillin/Tazobactam 3.375 GM in 0.9 % Sodium Chloride Mini Bag 100 ML IVPB SCH (08:00)
[2022-03-08] MEDS: Ipratropium/Albuterol Neb 3 ML IH SCH ×3 (08:02→15:42)
[2022-03-08] MEDS ORDERED: Budesonide/Formoterol 160/4.5 1 PUFF INH IH SCH (10:00)
[2022-03-08] MEDS ORDERED: levETIRAcetam 1,000 MG in 0.9 % Sodium Chloride 100 ML IVPB ONE (10:20)
[2022-03-08] MEDS ORDERED: FentaNYL (PF) 1,000 MCG/100 ML IV.SOLN IVC SCH (10:45)
[2022-03-08] MEDS ORDERED: Chlorhexidine Rinse 15 ML MOUTHWASH MM SCH (11:30)
[2022-03-08] MEDS ORDERED: Valproic Acid INJ 1,000 MG in 0.9 % Sodium Chloride 100 ML IVPB SCH (11:30)
[2022-03-08 12:31] VITALS: TEMP 98
[2022-03-08 15:10] VITALS: BP 74/52; PULSE 72; O2SAT 97
[2022-03-08] MEDS ORDERED: Norepinephrine 4 MG/254 ML IV.SOLN IVC SCH (15:30)
[2022-03-08] MEDS ORDERED: levETIRAcetam 250 MG TABLET PO SCH (18:00)
== END 2022-03-08 16:00 | disposition short-term general hospital (02) | DRG 208 ==
LOC: ICNU 20:12 → EMEROOARM 20:12 → ICNU 22:20
PROVIDERS: ADMIT Internal Medicine; ATTEND Internal Medicine